=== PATIENT | female | born 1950 | race Caucasian/White ===

== ENCOUNTER 2017-02-15 08:05 | Day surgery (SDC) | payer MEDICARE, BC ==
--- NOTE | 2017-02-07 09:10 | HP ---
PREOPERATIVE HISTORY AND PHYSICAL: DATE OF SURGERY/ADMISSION: 02/15/17 DATE OF OFFICE VISIT/ENCOUNTER: 02/03/17 ATTENDING SURGEON: Zhanna Rodríguez MD* (dictated by ULI Moore) PROCEDURE: Right ring finger trigger finger release. CHIEF COMPLAINT: Right ring finger triggering. HISTORY OF PRESENT ILLNESS: This is a 66-year-old female who has had symptoms of clicking, catching, and triggering in her right ring finger over a year now. She has received 2 cortisone injections to treat this problem and unfortunately the symptoms recur. She is interested in pursuing more definitive treatment for this problem at this time and has consented to proceed with a right ring finger trigger finger release. PAST MEDICAL HISTORY: 1. Hypercholesterolemia. 2. History of a TIA in 2005. 3. Anxiety/depression. PAST SURGICAL HISTORY: 1. Dental surgery. 2. Breast biopsy. CURRENT MEDICATIONS: 1. Atorvastatin calcium 10 mg daily. 2. Fish oil 2 caps daily. 3. Ibuprofen 200 mg 1 tab 2 to 3 times daily p.r.n. arthritis. 4. Multivitamin daily. 5. Venlafaxine HC1 ER 75 mg daily. 6. Vitamin D 5000 units once weekly. ALLERGIES: No known drug allergies. FAMILY MEDICAL HISTORY: Rheumatoid arthritis, diabetes, breast cancer, Alzheimer's disease, and congestive heart failure. SOCIAL HISTORY: The patient is retired. She denies smoking and recreational drug use. She does admit to alcohol use on occasion. REVIEW OF SYSTEMS: General: Negative for fever, chills, or night sweats. No known anesthesia problems. HEENT: Negative for headache, lightheadedness, or syncopal episodes. Integumentary: Negative for abrasions, lesions, or open wounds. Cardiothoracic: Negative for hypertension, chest pain, palpitations or edema. Pulmonary: Negative for shortness of breath with exertion, chronic cough, COPD. GI: Negative for nausea, vomiting, diarrhea, constipation, or GERD. : Negative for nocturia, urinary frequency, urgency, history of UTIs, or kidney problems. Musculoskeletal: Positive for current complaints. Negative for chronic or intermittent back pain or history of fractures. Neurological: Positive for history of a TIA in 2005. Positive for depression. Negative for paresthesias or numbness. Endocrine: Negative for diabetes or thyroid issues. Hematologic: Negative for easy bruising, anemia, excessive bleeding or history of DVT. Infectious Disease: Negative for history of MRSA, hepatitis C, or HIV. PHYSICAL EXAMINATION GENERAL: Well-developed, well-nourished 66-year-old female, in no acute distress. VITAL SIGNS: Height 5 feet 2 inches, weight 164 pounds, pulse rate 80, blood pressure 118/70. HEENT: Normocephalic, atraumatic. Pupils are equal, round, and reactive to light and accommodation. Extraocular movements are intact. Throat is clear. NECK: Supple. No palpable lymph nodes. PULMONARY: Lungs are clear to auscultation bilaterally. No wheezes, rales, or rhonchi. CARDIOVASCULAR: Regular rate and rhythm. S1, S2. No murmurs, rubs, or gallops. No edema. ABDOMEN: Positive bowel sounds, soft, and nontender. NEUROLOGIC: Alert and oriented x3. Cranial nerves II through XII are intact. Sensation is intact to light touch. On exam of her right hand and ring finger in particular she has tenderness to palpation at the A1 edison. There is no visible swelling. She has active triggering with flexion and extension, but she has full range of motion. Neurovascular function is intact. IMPRESSION: Right ring finger trigger finger. PLAN: The patient is scheduled to undergo a right ring finger trigger finger release with Dr. Rodríguez on 02/15/17. She will return to the office in 10 to 14 days postop for followup and suture removal. A prescription for Ultracet was e- scribed to the patient's pharmacy for postoperative pain management. ULI MOORE [id number]/[facility] #: [id number] MTDD
[~2017-02-15 08:05] MED LIST: Buffered Lidocaine 0.9% SYRIN* 5 ML/SYR SYRINGE INTRADERM ONE
[2017-02-15] MEDS ORDERED: Lidocaine 1% INJ* 10 MG/ML 30 ML SDV ONE (09:34)
[2017-02-15] MEDS ORDERED: Lidocaine 2% PF * 5 ML VIAL ONE (10:04)
[2017-02-15] MEDS ORDERED: Propofol* 10 MG/ML 20 ML BTL IV PUSH ONE (10:04)
[2017-02-15 10:24] VITALS: BP 119/77
--- NOTE | 2017-02-15 18:19 | OP ---
DATE OF OPERATION: 02/15/17 [facility] DATE OF : 52 SURGEON: Zhanna Rodríguez MD VALVE FITTER: ULI Moore ANESTHESIOLOGIST: Jacob Jaeger DO ANESTHESIA: Local MAC. PRE-OP DIAGNOSIS: Right ring finger trigger finger. POST-OP DIAGNOSIS: Right ring finger trigger finger. OPERATIVE PROCEDURE: Right ring finger trigger release. INDICATIONS: Josephine is a 66-year-old female with painful locking of her right ring finger, she presents for trigger finger release. ESTIMATED BLOOD LOSS: Zero. TOURNIQUET TIME: About 5 minutes. DESCRIPTION OF PROCEDURE: The patient was brought to the operating room, was given a sedation anesthetic, and a local infiltration of 10 cc of 1% plain lidocaine in the palm of her right hand. The skin of her right hand and forearm was prepped and draped in the usual sterile fashion. The hand and forearm were exsanguinated and the tourniquet elevated to 250 mmHg. A transverse incision was made centered over the A1 edison of the right ring finger, dissected through the subcutaneous tissue down to the A1 edison. The digital neurovascular bundles were retracted by the surgical rn, ULI Moore. The A1 edison was incised longitudinally, completely releasing the flexor tendons which were in good condition. The wound was irrigated and the skin edges were reapproximated with 4-0 nylon suture. The wound was dressed with Xeroform, 4x4, Webril, and an Todd wrap. The patient tolerated the procedure well, was brought to the recovery room in good condition. [id number]/[facility] #: [id number] MTDD
== END 2017-02-15 10:44 | disposition home or self-care (01) ==
LOC: OREAST 08:05
PROVIDERS: ATTEND Orthopaedic Surgery
DX: M65.341 Trigger finger, right ring finger (principal); Z86.73 Personal history of transient ischemic attack (TIA), and cerebral infarction without residual deficits; E78.00 Pure hypercholesterolemia, unspecified
CPT/HCPCS: J2001; J2704

== ENCOUNTER 2021-04-26 01:34 | Inpatient (IN) ==
[2021-04-26 02:29] LABS: ABS Monocytes 0.6 10^3/ul (0-0.8); ABS Neutrophils 11.9 10^3/ul (1.5-7.7); Eosinophil % 0.1 %; Hematocrit 46 % (35-47); Hemoglobin 15.2 g/dL (12.0-16.0); Lymphocyte % 7.1 %; Mean Corpuscular HGB Conc 34 g/dL (31-36); Mean Corpuscular Hemoglobin 29 pg (27-31); Mean Corpuscular Volume 86 fL (80-97); Mean Platelet Volume 10.1 fL (7.4-10.4); Platelet Count 185 10^3/uL (150-450); Red Blood Count 5.32 10^6 /uL (3.70-4.87); Red Cell Distribution Width 14 % (10-15); White Blood Count 13.5 10^3/uL (3.5-10.8)
[2021-04-26 02:56] LABS: Albumin 4.2 g/dL (3.2-5.2); Calcium 9.7 mg/dL (8.6-10.3); Potassium 3.5 mmol/L (3.5-5.0); Total Bilirubin 0.8 mg/dL (0.2-1.0)
[2021-04-26 03:02] LABS: Albumin/Globulin Ratio 1.4 (1-3); C Reactive Protein 70.87 mg/L (<8.01); EGFR African American 77.1 (>60); EGFR Non-African American 63.7 (>60); Globulin 2.9 g/dL (2-4); Total Protein 7.1 g/dL (6.4-8.9)
[2021-04-26] MEDS ORDERED: Iohexol 300 (CONTRAST) 10 ML SDV IV ONE (04:15)
[2021-04-26] MEDS ORDERED: fentaNYL 100 mcg/2 ml 50 MCG/ML VIAL IV ONE (06:27)
[2021-04-26 06:36] LABS: Urine Appearance Clear; Urine Bacteria Absent (Absent); Urine Bilirubin Negative (Negative); Urine Blood 1+ (Negative); Urine Color Yellow; Urine Glucose Negative (Negative); Urine Ketones Trace (Negative); Urine Nitrite Negative (Negative); Urine Protein Negative (Negative); Urine Red Blood Cell Absent (Absent); Urine Squamous Epithelial Cell Present (Absent); Urine Urobilinogen Negative (Negative); Urine White Blood Cell Trace(0-5/hpf) (Absent)
[2021-04-26 06:44] LABS: Urine Specific Gravity > 1.060 (1.002-1.030)
[2021-04-26] MEDS ORDERED: Piperacillin/Tazobac ADVAN 3.375 GM in NS 0.9% 100 ml BAG 100 ML IV ONE (08:22)
[2021-04-26 08:57] LABS: Rapid COVID-19 Molecular Undetected (Undetected)
[2021-04-26] MEDS ORDERED: Lactated Ringers 1000 ml BAG 1,000 ML IV ONE (09:46)
[2021-04-26] MEDS ORDERED: Ondansetron 4 mg VIAL 2 MG/ML 2 ml VIAL IV PRN (09:51)
[2021-04-26] MEDS ORDERED: HYDROmorphone 1 MG/1 ML SYRINGE IV SLOW PU PRN (09:51)
[2021-04-26] MEDS ORDERED: Lactated Ringers 1000 ml BAG 1,000 ML IV SCH (10:45)
[2021-04-26] MEDS ORDERED: Bupivacaine 0.25% EPI 200,000 30 ML SDV ONE (11:32)
[2021-04-26] MEDS ORDERED: ceFAZolin 2 GM in NS PREMIX 2 GM/100 ML BAG IVPB ONE (11:41)
[2021-04-26] MEDS ORDERED: Lidocaine 2% PF 5 ML VIAL ONE (11:51)
[2021-04-26] MEDS ORDERED: Propofol 10 MG/ML 20 ML BTL ONE (11:51)
[2021-04-26] MEDS ORDERED: Succinylcholine 200 mg VIAL 20 mg/ml 10 ml VIAL (200 mg) ONE (11:51)
[2021-04-26] MEDS ORDERED: fentaNYL 100 mcg/2 ml 50 MCG/ML VIAL ONE (11:52)
[2021-04-26] MEDS ORDERED: Midazolam 2 mg/2 ml VIAL 1 mg/ml 2 ml VIAL (2 mg) ONE ×2 (11:52→12:35)
[2021-04-26] MEDS ORDERED: Phenylephrine 40 mcg/mL 10mL (400mcg) SYRINGE ONE (12:24)
[2021-04-26] MEDS ORDERED: Rocuronium 50 mg VIAL 10 mg/ml 5 ml VIAL (50 mg) ONE (12:25)
[2021-04-26] MEDS ORDERED: Phenylephrine IV 10 MG/ML 1 ml VIAL ONE ×2 (12:26→12:27)
[2021-04-26] MEDS ORDERED: Dexamethasone IV 4 MG/ML VIAL 1 ml VIAL ONE (12:49)
[2021-04-26] MEDS ORDERED: Ondansetron 4 mg VIAL 2 MG/ML 2 ml VIAL ONE (12:49)
[2021-04-26] MEDS ORDERED: Naloxone 0.4 mg VIAL 0.4 mg/ml 1 ml VIAL IV PRN (13:17)
[2021-04-26] MEDS ORDERED: DiMENhydriNATE IV 50 mg/ml 1 ml VIAL IV PUSH PRN (13:17)
[2021-04-26] MEDS ORDERED: fentaNYL 100 mcg/2 ml 50 MCG/ML VIAL IV PRN (13:17)
[2021-04-26] MEDS: NS 0.9% 1000 ml BAG 1,000 ML IV SCH (15:54)
[2021-04-26] MEDS: Heparin 5000 UNITS/ML 1 mL VIAL SUBCUT SCH ×2 (16:16→23:14)
[2021-04-26] MEDS: Piperacillin/Tazobactam VIAL 3.375 GM in NS 0.9% 100 ml BAG 100 ML IVPB SCH (18:11)
[2021-04-27] MEDS: NS 0.9% 1000 ml BAG 1,000 ML IV SCH ×2 (01:43→08:05)
[2021-04-27] MEDS: Piperacillin/Tazobactam VIAL 3.375 GM in NS 0.9% 100 ml BAG 100 ML IVPB SCH ×3 (01:44→17:30)
[2021-04-27] MEDS: Heparin 5000 UNITS/ML 1 mL VIAL SUBCUT SCH ×3 (05:52→21:45)
[2021-04-27] MEDS: Venlafaxine XR 75 mg PO SCH (08:50)
[2021-04-28] MEDS: NS 0.9% 1000 ml BAG 1,000 ML IV SCH ×2 (00:49→08:27)
[2021-04-28] MEDS: Piperacillin/Tazobactam VIAL 3.375 GM in NS 0.9% 100 ml BAG 100 ML IVPB SCH ×2 (02:28→10:13)
[2021-04-28] MEDS: Heparin 5000 UNITS/ML 1 mL VIAL SUBCUT SCH ×2 (05:51→13:40)
[2021-04-28] MEDS: Venlafaxine XR 75 mg PO SCH (08:20)
[2021-04-28] MEDS ORDERED: Flu vaccine *QUAD* 2021-22* 0.5 ML SYRINGE IM ONE (09:00)
[2021-04-28 12:15] VITALS: BP 115/59
== END 2021-04-28 16:05 | disposition home or self-care (01) | DRG 340 ==
LOC: ED 01:34 → SSU 09:51
PROVIDERS: ADMIT Surgery; ATTEND Surgery